=== PATIENT | female | born 1975 | race Caucasian/White ===

== ENCOUNTER 2019-01-04 17:53 | Emergency (ER) | payer OTHER ==
[~2019-01-04] VITALS: Ht 170.2 cm; Wt 93.0 kg
[~2019-01-04 17:53] MED LIST: BETAHISTINE5 GM PO; LEVOTHYROXINE100 MC1 PO; MECLIZINE HCL12.5 MG PO
--- OUTSIDE RECORDS SUMMARY | 2019-01-04 17:55 | XMS REPORT ---
Author Author [facility] Address Unknown Phone Unavailable Care Team Providers Care Bituminous Paving Machine Operator Name Role Phone Tomi CHEEMA Unavailable Unavailable Problems This patient has no known problems. Allergies, Adverse Reactions, Alerts This patient has no known allergies or adverse reactions. Medications This patient has no known medications. Results Test Description Test Time Test Comments Text Results Atomic Results Result Comments CT BRAIN WO [place] [address] Patient Name: JUDIT LUGO MR #: [id number] : 1975 Age/Sex: 41/F Req #: [id number] Adm Physician: Ordered by: YANELY CHEEMA MD Report #: [id number] Location: ER Room/Bed: Procedure: [id number] CT/CT BRAIN WO Exam Date: 12/14/16 Exam Time: 1104 REPORT STATUS: Signed Exam: Head CT without contrast History: History of Meniere's disease with worsening symptoms Comparison studies: None Technique: Axial images were obtained from the skull base to the vertex. Coronal and sagittal images reconstructed from the axial data. Intravenous contrast: None Findings: Scalp: No abnormalities. Bones: No fractures, blastic or lytic lesions. Brain sulci: Appropriate for age. Ventricles: Normal in size and configuration. No hydrocephalus. Extra-axial spaces: No masses, no fluid collection. Parenchyma: No abnormal densities. No masses, acute hemorrhage, acute or chronic vascular insults. Sellar/suprasellar region: No abnormalities. Craniocervical junction: No Chiari one malformation. IMPRESSION: No acute intracranial abnormalities. Signed by: Dr. Daniel Conteh M.D. on 12/14/2016 11:46 AM Dictated By: DANIEL CONTEH MD [id number] Transcribed By: DAYAMI on 12/14/16 1146 COPY TO: YANELY CHEEMA MD
--- NOTE | 2019-01-04 18:15 | NUR ---
PT STATES SHE DOES NOT TORADOL IT MAKES HER SICK SHE WOULD PREFER TO TAKE HER OWN PRESCRIPTION FOR IBUPROFEN 800 MG TID
[2019-01-04 20:25] VITALS: BP 128/79
== END 2019-01-04 20:30 | disposition home or self-care (01) ==
LOC: ER 17:53
DX: M54.2 Cervicalgia (principal); S16.1XXA Strain of muscle, fascia and tendon at neck level, initial encounter
CPT/HCPCS: 99282

== ENCOUNTER 2019-12-31 08:23 | Emergency (ER) | payer OTHER ==
[~2019-12-31] VITALS: Ht 170.2 cm; Wt 95.8 kg
[2019-12-31] MEDS ORDERED: PREDNISONE 10 MG TAB PO ONE (09:00)
--- OUTSIDE RECORDS SUMMARY | 2019-12-31 09:08 | XMS REPORT | Continuity of Care Document ---
Author Author [facility] t Organization [facility] Address [address] [place] [address] Phone Unavailable Care Team Providers Care Electroplater Apprentice Name Role Phone Helen BYRD M.D. PCP Tomi CHEEMA Unavailable Payers Payer Name Policy Type Policy Number Effective Date Expiration Date [employer] [facility] [id number] 2011 00:00: 00 [facility] Problems This patient has no known problems. Allergies, Adverse Reactions, Alerts Allergy Name Allergy Type Status Severity Reaction(s) Onset Date Inacti ve Date Treating Clinician Comments Source Sulfamethoxazole Allergy to Substance Active Mild 2016-12-14 00: 00:00 [facility] Trimethoprim Allergy to Substance Active Mild 2016-12-14 00:00:0 0 [facility] Medications Ordered Medication Name Filled Medication Name Start Date Stop Da te Current Medication? Ordering Clinician Indication Dosage Frequency Signature (SIG) Comments Components Source Betahistine Hcl (Betahistine) 5 Gm Powder Betahistine Hcl (Betahistine) 5 Gm Powder Yes 8 Three Times A Day C [facility] Levothyroxine Sodium 100 Mcg Vial Levothyroxine Sodium 100 Mcg Vial Yes 125 Daily [facility] Meclizine Hcl 12.5 Mg Tablet Meclizine Hcl 12.5 Mg Tablet Y es 25 Three Times A Day [facility] Procedures This patient has no known procedures. Encounters Start Date/Time End Date/Time Encounter Type Admission Type [facility] Care Department Encounter ID Source 2019-01-04 17:53:00 2019-01-04 17:53:00 Registered Emergency Room [facility] [id number] [facility] Results Test Description Test Time Test Comments Results Result Comments Source CT BRAIN WO [facility] [address] [place] [address] Patient Name: JUDIT LUGO MR #: [id number] : 1975 Age/Sex: 41/F Req #: [id number] Adm Physician: Ordered by: YANELY CHEEMA MD Report #: [id number] Location: ER Room/Bed: Procedure: [id number] CT/CT BRAIN WO Exam Date: 12/14/16 Exam [...]
[2019-12-31] MEDS ORDERED: PREDNISONE 20 MG TAB ONE (09:09)
[2019-12-31] MEDS ORDERED: PREDNISONE20 MG PO (09:12)
[2019-12-31] MEDS ORDERED: CYCLOBENZAPRINE5 MG PO (09:12)
--- NOTE | 2019-12-31 09:13 | Emergency Department Note ---
History of Present Illnes History of Present Illness Chief Complaint: lower back pain radiating down rle s/p picking up a box History of Present Illness This is a 44 year old female . Historian: Patient Arrival Mode: Car Additional Treatment SECURITY SALES CONSULTANT: ibuprofen 800mg 0530 History limited by: condition of the patient Logistics Management Specialist Required: No Onset (how long ago): day(s) (2) Location: see above Radiation: Reports extremity (rle) Severity: severe Onset quality: sudden Duration (how long): day(s) (2) Timing of current episode: constant Progression: unchanged Chronicity: new Context: Reports trauma/injury; Denies recent illness, Denies recent surgery, Denies recent immobilization, Denies recent travel, Denies new medications, Denies hx of DVT/PE, Denies non- compliance w/ medications Relieving factors: none Exacerbating factors: movement Associated symptoms: Reports denies other symptoms Treatments prior to arrival: none Past Medical/Family History Physician Review I have reviewed the patient's past medical and family history. Any updates have been documented here. Past Medical History Recent Fever: No Clinical Suspicion of Infectio: No New/Unexplained Change in Ment: No Other Medical History: Goiter Meniers disease Past Surgical History: Cholecysctectomy Other Surgery: STOMACH BANDING 1998 THYROID BIOPSY Social History Smoking Cessation: Never Smoker Counseling Performed: No Alcohol Use: None Any Illegal Drug Use: No Physically hurt or threatened: No Other Last Tetanus: UTD Any Pre-Existing Lines (PICC,: No Review of Systems Review of Systems Constitutional: Reports no symptoms EENTM: Reports no symptoms Cardiovascular: Reports no symptoms Respiratory: Reports no symptoms Gastrointestinal: Reports no symptoms Genitourinary: Reports no symptoms Musculoskeletal: Reports as per HPI Integumentary: Reports no symptoms Neurological: Reports no symptoms Psychological: Reports no symptoms Endocrine: Reports no symptoms Hematological/Lymphatic: Reports no symptoms Review of other systems: All other systems negative Physical Exam Related Data Allergies: Coded Allergies: sulfamethoxazole (Verified Allergy, Mild, rash/hives, 12/31/19) THRUSH trimethoprim (Verified Allergy, Mild, rash/hives, 12/31/19) THRUSH Triage Vital Signs Vital Signs Date Time Temp Pulse Resp B/P (MAP) Pulse Ox O2 Delivery O2 Flow Rate FiO2 12/31/19 08:25 98.7 88 16 136/64 98 Room Air Vital signs reviewed: Yes Physical Exam CONSTITUTIONAL Constitutional: Present well-developed, Present well-nourished, Present other (+anxious) HENT HENT: Present normocephalic, Present atraumatic, Present oropharynx clear/moist, Present nose normal HENT L/R: Present left ext ear normal, Present right ext ear normal EYES Eyes: Reports PERRL, Reports conjunctivae normal NECK Neck: Present ROM normal PULMONARY Pulmonary: Present effort normal, Present breath sounds normal CARDIOVASCULAR Cardiovascular: Present regular rhythm, Present heart sounds normal, Present capillary refill normal, Present normal rate GASTROINTESTINAL Abdominal: Present soft, Present nontender, Present bowel sounds normal GENITOURINARY Genitourinary: Present exam deferred SKIN Skin: Present warm, Present dry MUSCULOSKELETAL Musculoskeletal: Present ROM normal, Present other (+low back muscle spasms. ) NEUROLOGICAL Neurological: Present alert, Present oriented x 3, Present no gross motor or sensory deficits, Present other (+positive rgt straight leg test at 30 degrees) PSYCHOLOGICAL Psychological: Present mood/affect normal, Present judgement normal Assessment & Plan Medical Decision Making MDM sciatica , back strain Assessment & Plan Final Impression: (1) Sciatica Depart Disposition: HOME, SELF-CARE Last Vital Signs Date Time Temp Pulse Resp B/P (MAP) Pulse Ox O2 Delivery O2 Flow Rate FiO2 12/31/19 08:25 98.7 88 16 136/64 98 Room Air Home Meds Active Scripts Cyclobenzaprine Hcl (FLEXERIL) 5 Mg Tablet, 10 MG PO Q8H PRN for MUSCLE SPASMS, #30 TAB TAKE AFTER PREDNISONE TO CONTROL PAIN IF NEED BE Prov:DAVID KAUR 12/31/19 Prednisone (PREDNISONE) 20 Mg Tab, 60 MG PO DAILY PRN for MODERATE PAIN (4-6), #12 TAB START TOMORROW. TAKE ALL 3 20 MG PILLS AT ONCE Prov:DAVID KAUR 12/31/19 Reported Medications Betahistine Hcl (BETAHISTINE) 5 Gm Powder, 8 MG PO TID 12/14/16 Meclizine Hcl (MECLIZINE HCL) 12.5 Mg Tablet, 25 MG PO TID, TAB 12/14/16 Levothyroxine Sodium (LEVOTHYROXINE SODIUM) 100 Mcg Vial, 125 MCG PO DAILY, VIAL 12/14/16 DAVID KAUR Dec 31, 2019 09:13
[2019-12-31] MEDS ORDERED: PREDNISONE 20 MG TAB PO ONE (09:15)
== END 2019-12-31 09:42 | disposition home or self-care (01) ==
LOC: FSED 08:53
DX: M54.41 Lumbago with sciatica, right side (principal); Y93.E9 Activity, other interior property and clothing maintenance; H81.09 Meniere's disease, unspecified ear
CPT/HCPCS: 99283; J7512

== ENCOUNTER 2024-07-25 22:12 | Emergency (ER) | payer OTHER ==
[~2024-07-25] VITALS: Ht 170.2 cm; Wt 92.5 kg
[~2024-07-25 22:12] MED LIST changes: +CYCLOBENZAPRINE5 MG PO; +PREDNISONE20 MG PO
[2024-07-26 00:06] LABS: THYROID STIMULATING HORMONE 3.434 uIU/mL (0.350-4.940)
[2024-07-26 00:11] LABS: T4 (THYROXINE) 11.25 ug/dL (4.5-10.9)
[2024-07-26 00:42] VITALS: PULSE 82; RESP 16; TEMP 98.6
[2024-07-26 01:12] VITALS: BP 122/65; PULSE 82; RESP 16; TEMP 98.6; O2SAT 100
== END 2024-07-26 01:24 | disposition home or self-care (01) ==
LOC: FSED 22:33
DX: R00.2 Palpitations (principal); R07.89 Other chest pain; E03.9 Hypothyroidism, unspecified; E66.9 Obesity, unspecified; R94.31 Abnormal electrocardiogram [ECG] [EKG]; Z98.84 Bariatric surgery status
CPT/HCPCS: 36415; 71046; 80048; 80076; 81003; 81025; 84436; 84443; 84484; 85025; 85379; 93005; 99284

== ENCOUNTER 2024-08-10 21:04 | Emergency (ER) | payer OTHER ==
[~2024-08-10] VITALS: Ht 170.2 cm; Wt 93.9 kg
[2024-08-10] MEDS ORDERED: DEXAMETHASONE SOD PHOS 10 MG/1 ML VIAL IV ONE (21:30)
[2024-08-10] MEDS: SUMATRIPTAN SUCCINATE 6 MG/0.5 ML VIAL SC ONE (21:38)
[2024-08-10] MEDS: DEXAMETHASONE SOD PHOS INJ 4 MG/ML SDV IV ONE (21:39)
[2024-08-10] MEDS: KETOROLAC TROMETHAMINE 30 MG/ML VIAL IV STA (21:40)
[2024-08-10] MEDS: METOCLOPRAMIDE HCL 10 MG/2ML VIAL IV ONE (21:40)
[2024-08-10] MEDS: DIPHENHYDRAMINE HCL INJ 50 MG/ML VIAL IV ONE (21:40)
[2024-08-10] MEDS: SODIUM CHLORIDE 0.9% 1000ML 1,000 ML IV ONE (21:41)
[2024-08-10] MEDS ORDERED: MAXALT10 MG PO (22:34)
[2024-08-10] MEDS ORDERED: ONDANSETRON ODT4 MG PO (22:34)
[2024-08-10 22:42] VITALS: BP 119/59; PULSE 79; RESP 18; TEMP 97.3
[2024-08-10 22:43] VITALS: PULSE 79; RESP 18; TEMP 97.3; O2SAT 98
== END 2024-08-10 22:42 | disposition home or self-care (01) ==
LOC: FSED 21:07
DX: G43.909 Migraine, unspecified, not intractable, without status migrainosus (principal); E03.9 Hypothyroidism, unspecified; E66.9 Obesity, unspecified; Z98.84 Bariatric surgery status
CPT/HCPCS: 80048; 80076; 81003; 81025; 85025; 96372; 96374; 96375; 99283; J1100; J1200; J1885; J2765; J3030; J7030

== ENCOUNTER 2024-09-08 21:04 | Emergency (ER) | payer OTHER ==
[~2024-09-08] VITALS: Ht 170.2 cm; Wt 93.4 kg
[~2024-09-08 21:04] MED LIST changes: +MAXALT10 MG PO; +ONDANSETRON ODT4 MG PO
[2024-09-08 21:30] VITALS: PULSE 85; RESP 18; TEMP 98
[2024-09-08] MEDS: IBUPROFEN 400 MG TAB PO ONE (22:18)
[2024-09-08 22:55] VITALS: BP 136/73; PULSE 85; RESP 18; TEMP 98; O2SAT 96
== END 2024-09-08 22:55 | disposition home or self-care (01) ==
LOC: FSED 21:38
DX: M25.552 Pain in left hip (principal); S70.02XA Contusion of left hip, initial encounter; M25.532 Pain in left wrist; R23.3 Spontaneous ecchymoses; W01.198A Fall on same level from slipping, tripping and stumbling with subsequent striking against other object, initial encounter; Y92.89 Other specified places as the place of occurrence of the external cause; E03.9 Hypothyroidism, unspecified; E66.9 Obesity, unspecified; H81.09 Meniere's disease, unspecified ear
CPT/HCPCS: 99283

== ENCOUNTER 2024-11-11 18:43 | Emergency (ER) | payer OTHER ==
[~2024-11-11] VITALS: Ht 170.2 cm; Wt 93.4 kg
[2024-11-11 19:29] LABS: BASOPHILS % 0.6 % (0.0-1.0); EOSINOPHILS % 2.6 % (0.0-6.0); LYMPHOCYTES % 20.4 % (18.0-39.1); MONOCYTES % 7.8 % (4.4-11.3); NEUTROPHILS % 68.3 % (38.7-80.0); RED CELL DISTRIBUTION WIDTH 13.1 % (11.7-14.4)
[2024-11-11 19:43] LABS: LEUKOCYTE ESTERASE ,URINE SMALL (NEGATIVE); PROTEIN,URINE DIPSTICK >=300 (NEGATIVE); URINE UROBILINOGEN 0.2 mg/dL (0.2 - 1)
[2024-11-11 19:48] LABS: EST GLOMERULAR FILTRATION RATE 91.0 ML/MIN (>=60)
[2024-11-11 21:01] VITALS: PULSE 65; RESP 16; TEMP 98.5; O2SAT 99
== END 2024-11-11 21:10 | disposition home or self-care (01) ==
LOC: ER 20:42
DX: N93.8 Other specified abnormal uterine and vaginal bleeding (principal); E03.9 Hypothyroidism, unspecified; E66.9 Obesity, unspecified; H81.09 Meniere's disease, unspecified ear; Z98.84 Bariatric surgery status
CPT/HCPCS: 36415; 80053; 81001; 81025; 85025; 99284